=== PATIENT | male | born 1940 | race Hispanic/Latino ===

== ENCOUNTER → 2018-11-05 | Day surgery (SDC) | payer OTHER ==
--- NOTE | 2018-11-04 16:56 | EKG ---
Test Date: 2018-11-04 Test Time: 12:19:34 Jig Grinder: EMILY MEASUREMENT RESULTS: Intervals: Rate: 49 DE: 246 QRSD: 100 QT: 530 QTc: 478 Boring: P: 28 DE: 246 QRS: -72 T: 9 INTERPRETIVE STATEMENTS: Marked sinus bradycardia with 1st degree AV block with premature atrial complexes Left axis deviation Pulmonary disease pattern Abnormal ECG No previous ECG available for comparison Electronically Signed On 11-04-18 16:54:37 CDT by Jude Hill
[~2018-11-05] MED LIST: EPINEPHRINE/PF 1 MG/ML AMP ONE; FENTANYL CITR 100 MCG/2 ML ONE; GLYCOPYRROLATE 0.2 MG/ML SYR ONE; KETOROLAC 30 MG/ML INJ ONE; LIDOCAINE 1% W/EPI 1:100,000 MDV 20 ML VIAL ONE; LIDOCAINE 2% MPF 5 ML VIAL ONE; MIDAZOLAM HCL 2 MG/2 ML INJ ONE; NA CHLORIDE 0.9% 1,000 ML ONE; OXYMETAZOLINE HCL 0.05% 15ML NAS ONE; PROPOFOL 200 MG/20 ML VIAL IV ONE; Ringers Lactate 1,000 ML IV ONE
--- OUTSIDE RECORDS SUMMARY | 2018-11-05 06:59 | XMS REPORT | Encounter Summary ---
:1940 Author Care Team Providers Name Role Phone Dr. Joe Gregory Primary Care Provider [phone] Reason for Visit AWV Annual Wellness Visit Male (VFP) Instructions 1. Hypertensive disorder CBC w/ auto diff CMP, serum or plasma TSH, serum or plasma lipid panel, serum 2. Screening for malignant neoplasm of colon colonoscopy referral 3. Screening for malignant neoplasm of prostate PSA, serum or plasma 4. Immunization 5. Advance directive discussed with patient advance care planning: care instructions 6. Depression screening 7. Body mass index 30+ - obesity learning about healthy weight aprenda acerca del peso saludable - [learning about healthy weight] ndice de masa corporal: instrucciones de cuidado - [body mass index: care instructions] Discussion Note RTC 1 yr for AWV Plan of Care Patient Instructions It was good to see you in the office today for your Medicare Annual Wellness Visit. You have been provided some information on healthy nutrition, including a diet rich in fruits and vegetables, minimizing simple carbohydrates, salt, and saturated fats. I want to encourage regular card iovascular exercise such as walking at least 30 minutes daily, 5 times per week. Please remember to schedule any preventive health measures that we talked about today. You have also been provided education on fall prevention and community-based lifestyle interventions to help reduce health risks and promote healthy living in your Annual Wellness folder. Screening Recommendations 1. Vaccines Pneumococcal: Ordered Influenza: Ordered Shingles: Recommended today Tetanus: Recommended today 2. Prostate Screening: Ordered 3. Colorectal cancer Screening Colonoscopy: Ordered Fecal Occult Blood: No screening necessary 4. Bone Mass Measurement: Recommended today 5. Eye Exam Screening: Recommended today 6. Cholesterol Screening: Ordered 7. Diabetes Screening: Ordered Reminders Provider Appointments Awv on or around Joe Gregory, 05/14/2019 Lab CBC W/ Auto 05/13/2018 [facility] CMP, Serum or 05/13/2018 [facility] TSH, Serum or 05/13/2018 [facility] Lipid Panel, 05/13/2018 [facility] Serum [facility] PSA, Serum or 05/13/2018 [facility] Referral Colonoscopy 05/13/2018 Will Campbell Referral Procedures None recorded. Surgeries None recorded. Imaging None recorded. Medications No Medications Reported Medications Administered None recorded. Vitals Height Weight BMI Blood Pressure 5 ft 9 in 228.8 lbs 33.8 kg/m2 128/86 mm[Hg] Lab Results None recorded. Allergies Code Code System Name Reaction Severity Status Onset NKDA Problems Name Status Onset Date Source Bilateral Hearing Loss Active 05/13/2018 Hypertensive Disorder Active 05/13/2018 Procedures Date Name Performed by Cataract Surgery Complex Information not available Vaccine List Vaccine Type influenza, unspecified formulation 05/13/2018 pneumococcal conjugate PCV 13 05/13/2018 Social History Smoking Status Former Smoker (1 PPW) Past Encounters 05/13/2018 Hypertensive Disorder; Screening for Malignant Neoplasm of Colon; Screening for Malignant Neoplasm of Prostate; Immunization; Advance Directive Discussed with Patient; Depression Screening; Body Mass Index 30+ - Obesity Joe Gregory MD: [address] [place] [address], [address] [address], Ph. History of Present Illness Mini Cog Reported By: Patient Functional Ability: Personal/Social/ Draw a clock and write in the numbers in the correct place, and set the time to 10 minutes after 11 o'clock was completed correctly? No, 3 word recall: Your nurse or doctor will ask you to remember 3 words. In 5 minutes, they will ask you to repeat them. Patient recalled no words Notes: May have some understanding issues Note: Get est.<div>
</div><div>AWV due.</div&gt ;<div>
</div><div>Skin - does not bruise easily.</ div><div>
</div><div>HTN - Stable. Taking meds. No problems with side effects or cost.</div><div>Pt does not know name of meds.</div><div>
</div><div> present.</div><div>
</div>Review of Systems: ROS as noted in the HPI Review of Systems Comprehensive General Adult ROS Reported By: Patient Constitutional: Constitutional: no fever, no night sweats, no significant weight gain, no significant weight loss, no exercise intolerance Eyes: Eyes: no dry eyes, no vision change, no irritation ENMT: Ears: no difficulty hearing, no ear pain. Nose: no frequent nosebleeds, no nose problems, no sinus problems. Mouth/Throat: no sore throat, no bleeding gums, no snoring, no dry mouth, no mouth ulcers, no oral abnormalities, no teeth problems Cardiovascular: Cardiovascular: no chest pain, no arm pain on exertion, no shortness of breath when walking, no shortness of breath when lying down, no palpitations, no known heart murmur, no lightheadedness Respiratory: Respiratory: no cough, no wheezing, no shortness of breath, no coughing up blood, no sleep apnea Gastrointestinal: Gastrointestinal: no abdominal pain, no nausea, no vomiting, no constipation, normal appetite, no diarrhea, not vomiting blood, no dyspepsia, no GERD Genitourinary: Genitourinary: no incontinence, no difficulty urinating, no hematuria, no increased frequency Musculoskeletal: Musculoskeletal: no muscle aches, no muscle weakness, no arthralgias/joint pain, no back pain, no swelling in the extremities Integumentary: Skin: no abnormal mole, no jaundice, no rashes, no laceration Neurologic: Neurologic: no loss of consciousness, no weakness, no numbness, no seizures, no dizziness, no migraines, no headaches, no tremor Psychiatric: Psych: no depression, no sleep disturbances, feeling safe in a relationship, no alcohol abuse, no anxiety, no hallucinations, no suicidal thoughts Endocrine: Endocrine: no fatigue Hematologic/Lymphatic: Hematologic/Lymphatic no swollen glands, no bruising, no excessive bleeding Allergic/Immunologic: Allergy/Immunologic: no runny nose, no sinus pressure, no itching, no hives, no frequent sneezing Physical Exam General Adult Exam (male) Reported By: Patient Constitutional: General Appearance: healthy-appearing, well-nourished, well-developed. Level of Distress: NAD. Ambulation: ambulating normally Psychiatric: Insight: good judgement. Mental Status: active and alert, normal mood, normal affect. Orientation: to time, to place, to person. Memory: recent memory normal, remote memory normal Head: Head: normocephalic, atraumatic Eyes: Lids and Conjunctivae: non-injected, no discharge, no pallor. Pupils: PERRLA. EOM: EOMI. Lens: clear. Sclerae: non-icteric. Vision: peripheral vision grossly intact, acuity grossly intact ENMT: Ears: no lesions on external ear, EACs clear, TMs clear, TM mobility normal. Hearing: hearing decreased. Nose: no lesions on external nose, nares patent, no septal deviation, nasal passages clear, no sinus tenderness, no nasal discharge. Lips, Teeth, and Gums: no mouth or lip ulcers, no bleeding gums, normal dentition. Oropharynx: moist mucous membranes, no erythema, no exudates, tonsils not enlarged Neck: Neck: supple, trachea midline, no masses, FROM. Lymph Nodes: no cervical LAD, no supraclavicular LAD, no axillary LAD, no inguinal LAD. Thyroid: no enlargement, non-tender, no nodules Lungs: Respiratory effort: no dyspnea. Auscultation: breath sounds normal, good air movement, CTA except as noted, no wheezing, no rales/crackles, no rhonchi Cardiovascular: Heart Auscultation: RRR, normal S1, normal S2, no murmurs, no rubs, no gallops. Neck vessels: no carotid bruits. Pulses including femoral / pedal: normal throughout Abdomen: Bowel Sounds: normal. Inspection and Palpation: soft, non-distended, no tenderness, no guarding, no rebound tenderness, no masses, no CVA tenderness. Liver: non-tender, no hepatomegaly. Spleen: non-tender, no splenomegaly Musculoskeletal:: Motor Strength and Tone: normal, normal tone. Joints, Bones , and Muscles: normal movement of all extremities, no contractures, no bony abnormalities, no malalignment, no tenderness. Extremities: no cyanosis, no edema, no varicosities Neurologic: Gait and Station: normal gait, normal station. Cranial Nerves: grossly intact. Sensation: grossly intact. Reflexes: DTRs 2+ bilaterally throughout. Coordination and Cerebellum: no tremor Skin: Inspection and palpation: no lesions, no jaundice Back: Thoracolumbar Appearance: normal curvature; No spinal tenderness to palpation Notes: Hearing loss
--- NOTE | 2018-11-05 08:54 | P.BOP ---
Preoperative diagnosis: R EAC osteoma Postoperative diagnosis: same Primary procedure: Exicsion EAC lesion Realty Loan Specialist: NONE,NONE Estimated blood loss: nil Specimen: R EAC osteoma Anesthesia: General Complications: None Implants: none Fluids & blood products: crystalloid 600ml Transferred to: Recovery Room Condition: Good
--- NOTE | 2018-11-05 20:27 | OP ---
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 Procedure: Excision of ear canal osteoma. Indication For Procedure: Will Ayala is a 78-year-old who was referred by Dr. Espinosa for excision of ear canal lesion due to obstructive hearing loss and inability to examine the middle ear due to o bstruction. The risks, benefits, and alternatives were discussed with the patient, who agreed to pro ceed. Description Of Procedure: The patient was brought to the operating room. He was placed under genera l anesthesia via LMA. The right ear was examined using the operating microscope. The ear canal was cleaned to the degree feasible using Betadine and the osteoma appeared to be attached on the superior aspect of the ear canal just medial to the osteocartilaginous junction. A total of 0.5 mL of 1% lid ocaine with epinephrine was used. After time for effect, a sickle knife was used to incise the skin along the edge of the ear canal at the attachment point and straight Bellucci scissors were used to d ivide further attachments on the inferior and posterior aspect. The osteoma was then rolled out of t he ear canal using a right angle hook. The medial ear canal was filled with ceruminous debris, which was suctioned using a 7 and 5-Indian suction. After removal, the ear drum appeared to be intact. M ild bleeding at the attachment point of the osteoma was cauterized using needle tip Bovie until hemos tasis was obtained. The meatus was then packed with a cotton ball covered in triple antibiotic ointm ent. The procedure was concluded and the patient was returned to care of anesthesia for awakening, e xtubation in the operating room, and transportation to the recovery room which proceeded without difficulty. ROCK/DINESH Voice ID: [id number] Report ID: [id number]
== END ==
LOC: OR 06:53
PROVIDERS: ATTEND Otolaryngology
PROC: 09B37ZZ Excision of Right External Auditory Canal, Via Natural or Artificial Opening (ICD-10-PCS; principal; 2018-11-05 08:15)
DX: D16.4 Benign neoplasm of bones of skull and face (principal); H91.93 Unspecified hearing loss, bilateral; I10 Essential (primary) hypertension; Z72.0 Tobacco use
CPT/HCPCS: 93005; 88304; 88311; 69140; J2704; J2250; J3010; J7030; J0171